=== PATIENT | female | born 1980 | race Two or more races ===

== ENCOUNTER → 2016-03-01 | Outpatient (CLI) | payer OTHER ==
--- NOTE | 2016-03-01 14:22 | US ---
Dear Dr. Quintana, Thank you for sending your patient, Agnieszka Singleton, to us for an US and consultation to assess anatomy. As you know, the patient is a 35 y.o. G1, P0 at 20 weeks and 2 days with an EDC of 5/2 10/06 based on LMP and 12 week US. Her is complicated by possible Zika exposure in the ester . Genetic Screening: Sequential Screen negative The patient denies any uterine contractions, vaginal bleeding, or loss of fluid. Today, she is withou t complaints. US FINDINGS: Number of fetuses: 1 Placental location: Fundal posterior, No previa Placental Cord Insertion: MARGINAL presentation: Variable Cervix: 3.5 cm, transabdominally MVP: 4.5 cm The adnexa were evaluated. No pathology was seen. Right ovary: Suboptimal Left ovary: Normal heart rate: 142 bpm Measurements: Biparietal diameter: 49 mm, 20 weeks 6 days Head circumference: 176 mm, 20 weeks 1 days Abdominal circumference: 151 mm, 20 weeks 3 days Femur length: 31 mm, 19 weeks 5 days Humerus length: 31 mm, 20 weeks 1 days Transcerebellar diameter: 22 mm, 20 weeks 4 days Average ultrasound age: 20 weeks 2 days Estimated weight: 327 g weight percentile: 31% ANATOMY Supratentorial brain: Normal Cerebral lateral ventricle: 6 mm Posterior fossa: Normal Cisterna magna: 4 mm Nuchal fold: 4.1 mm Lip: Normal Profile: Normal Alveolar Ridge: Suboptimal Spine: -- Cervical: Normal -- Thoracic: Normal -- Lumbar: Normal -- Sacral: Normal Heart: -- 4 Chamber: Normal -- Intraventricular septum: Appears intact by Color and Spectral US -- Right Outflow Tract: Normal -- Left Outflow Tract: Normal -- 3 Vessel View: Normal -- Aortic Arch: Normal -- Ductal Arch: Normal Diaphragm: Appears intact Stomach: Normal Abdominal Umbilical Cord Insertion: Normal Right kidney: Normal Left kidney: Normal Bladder: Normal Number of cord vessels: 3 Upper extremities: -- Right Arm: Normal -- Right Hand: Normal -- Left Arm: Normal -- Left Hand: Normal Lower extremities: -- Right Leg: Normal -- Right Foot: Normal, no club foot -- Left Leg: Normal -- Left Foot: Normal, no club foot IMPRESSION: 1. Anatomy: The fetus measures appropriate for gestational age, measuring a normal weight and percen tile. Visualization of the fetus today reveals no overt structural anomalies. There is evidence of no rmal amniotic fluid, and movement was seen during the examination. 2. Genetic Screening: This patient has had reassuring Sequential Screen results this . Today , no markers of aneuploidy were seen. While her screening and US results are reassuring, we rev iewed that aneuploidy can only be definitively excluded with diagnostic testing via amniocentes is. After this discussion, the patient does not wish to proceed with invasive testing at this time. 3. Zika Exposure: The patient had potential exposure to Zika at the time of conception and in the fir st trimester. In accordance with CDC screening guidelines, I recommend growth ultrasounds every 4-6 w eeks to assess head size and intracranial anatomy. - Growth US in 4-6 weeks 4. Marginal Cord Insertion: We discussed that this increases the risk of IUGR. - Growth US at 28-32 weeks (Patient will already be receiving regular growth US for Zika exposure) Thank you again for sending this patient to see us today. Approximately 12 minutes of a total visit t calvin of 15 minutes were spent with this patient today in direct face to face counseling regarding redd y's US findings and the above recommendations. Please feel free to contact me with any questions at . Ev Munroe MD Maternal- Medicine
--- NOTE | 2016-03-01 18:07 | US ---
Ultrasound Obstetric Detailed Evaluation Indication: The estimated gestational age by LMP is 20 weeks and 2 days yielding an EDC of July 17, 2016. Comparison: None. Findings: Number: 1 Presentation: Variable Placental location: Posterior fundal without previa Cervix: 3.5 cm MVP: 4.5 cm heart rate: 142 bpm. Left ovary 3.3 x 2.5 x 1.3 cm. Right ovary not visualized. Biometry: Biparietal diameter: 48.80 mm 20 weeks, 6 days Head circumference: 176.1 mm 20 weeks, 1 days Abdominal circumference: 150.57 mm 20 weeks, 3 days Femur length: 31.03 mm 19 weeks, 5 days Humerus length: 30.48 mm 20 weeks, 1 days Transcerebellar diameter: 21.81 mm 20 weeks, 4 days HC/AC: 1.17 FL/BPD: 64% FL/AC: 21% Average ultrasound age: 20 weeks, 2 days EDC based on today's average ultrasound age: July 17, 2016 Estimated weight is 327 gms +/- 48 gms. The estimated weight is at the 31 % based on previous dating. ANATOMY SURVEY: Supratentorial brain: Normal Posterior fossa: Normal Spine: Normal Nuchal fold: Normal Nose and lips: Suboptimal alveolar ridge. Facial profile: Normal Heart: Four chamber heart. 142 bpm. Intact intraventricular septum. Cardiac outflow tracts: Normal Stomach: Normal Umbilical cord insertion: Normal Kidneys: Normal, no pyelectasis Bladder: Normal Number of cord vessels: Three Upper extremities: Visualized Lower extremities: Visualized. Impression: 1. Living lopez in variable presentation. 2. Size concordant with dates. 3. No overt anomalies detected. 4. Please see Dr. Ev Munroe's consult and recommendations.
== END ==
LOC: FIMAGING 11:49
PROVIDERS: ATTEND Obstetrics & Gynecology
DX: O98.512 Other viral diseases complicating pregnancy, second trimester (principal); Z3A.20 20 weeks gestation of pregnancy

== ENCOUNTER → 2016-04-05 | Outpatient (CLI) | payer OTHER | LOC: FIMAGING 14:30 | PROVIDERS: ATTEND Obstetrics & Gynecology | DX: Z34.02 Encounter for supervision of normal first pregnancy, second trimester (principal); Z3A.25 25 weeks gestation of pregnancy ==

== ENCOUNTER → 2016-05-19 | Outpatient (CLI) | payer OTHER | LOC: FIMAGING 13:53 | PROVIDERS: ATTEND Obstetrics & Gynecology | DX: O09.893 Supervision of other high risk pregnancies, third trimester (principal); Z3A.31 31 weeks gestation of pregnancy ==

== ENCOUNTER → 2016-06-20 | Outpatient (CLI) | payer OTHER | LOC: FIMAGING 14:35 | PROVIDERS: ATTEND Obstetrics & Gynecology | DX: O36.5930 Maternal care for other known or suspected poor fetal growth, third trimester, not applicable or unspecified (principal); O98.513 Other viral diseases complicating pregnancy, third trimester; Z3A.36 36 weeks gestation of pregnancy ==

== ENCOUNTER 2016-06-28 17:00 | Inpatient (IN) | payer OTHER ==
[2016-06-28] MEDS ORDERED: OLIVE OIL 118 ML BTL MISC PRN (19:06)
[2016-06-28] MEDS ORDERED: OXYTOCIN/RINGERS LACTATE 1,000 ML IV PRN (19:06)
[2016-06-28] MEDS ORDERED: TERBUTALINE SULFATE 1 MG/ML VIAL IV PRN (19:06)
[2016-06-28] MEDS ORDERED: LR 1,000 ML IV PRN (19:06)
[2016-06-28] MEDS ORDERED: LR 500 ML IV PRN (19:06)
[2016-06-28] MEDS ORDERED: LIDOCAINE 1% 30 ML SDV SC PRN (19:06)
[2016-06-28] MEDS ORDERED: EPSOM SALT 454 GM TP PRN (19:06)
[2016-06-28] MEDS ORDERED: ZOLPIDEM TARTRATE 5 MG TAB PO PRN (19:07)
[2016-06-28] MEDS ORDERED: diphenhydrAMINE 25 MG CAP PO PRN (19:07)
[2016-06-28] MEDS ORDERED: CALCIUM CARBONATE 500 MG CHEWABLE TAB PO PRN (19:07)
[2016-06-28] MEDS ORDERED: ACETAMINOPHEN 650 MG/20.3 ML UDCUP PO PRN (19:15)
[2016-06-28] MEDS ORDERED: OXYTOCIN/RINGERS LACTATE 500 ML IV SCH (19:30)
[2016-06-28 22:33] LABS: % IMMATURE GRANULYOCYTES 0.7 % (0.0-1.1); ABSOLUTE IMMATURE GRANULOCYTES 0.09 10^3/uL (0.00-0.10); ADD DIFF? NO; ADD MORPH? NO; ADD SCAN? NO; ATYPICAL LYMPHOCYTE FLAG 0 (0-99); FRAGMENT RBC FLAG 0 (0-99); HEMATOCRIT 36.9 % (38.0-47.0); HEMOGLOBIN 12.8 g/dL (12.6-16.3); LEFT SHIFT FLG 10 (0-99); LIPEMIA HEMOLYSIS FLAG 90 (0-99); MEAN CELL HEMOGLOBIN CONCENTR. 34.7 g/dL (32.4-36.7); MEAN CELL VOLUME 89.3 fL (81.5-99.8); MEAN PLATELET VOLUME 10.7 fL (8.7-11.7); PLATELET CLUMPS FLAG 0 (0-99); PLATELET COUNT 193 10^3/uL (150-400); RED BLOOD CELL COUNT 4.13 10^6/uL (4.18-5.33)
[2016-06-28] MEDS ORDERED: OLIVE OIL 118 ML BTL ONE (23:26)
[2016-06-28] MEDS ORDERED: LIDOCAINE 1% 30 ML SDV ONE (23:26)
[2016-06-28] MEDS ORDERED: OXYTOCIN 10 UNIT/ML VIAL ONE (23:27)
[2016-06-28] MEDS ORDERED: MISOPROSTOL 200 MCG TAB ONE (23:27)
[2016-06-28] MEDS ORDERED: TERBUTALINE SULFATE 1 MG/ML VIAL ONE (23:27)
[2016-06-28] MEDS ORDERED: AMMONIA AROMATIC 1 EACH AMP IH ONE (23:27)
[2016-06-29] MEDS ORDERED: AMPICILLIN SODIUM 2 GM in NS 100 ML IV ONE ×3 (03:00→09:00)
[2016-06-29] MEDS ORDERED: OXYTOCIN/RINGERS LACTATE 500 ML IV SCH (04:00)
--- NOTE | 2016-06-29 08:07 | OBPROG ---
OBG Progress Note Assessment/Plan: Assessment: 36 yo @ 37 3/7, admitted for IOL for IUGR Plan: 06/29/16 08:06 FWB reassuring. GBS positive, on abx. Anticipate rupture of membranes at next check. Subjective: 36 yo @ 37 3/7, admitted for IOL for IUGR-comfortable. Objective: 06/28/16 22:20 Patient ABO/Rh O POSITIVE 06/28/16 22:20 VSS Current Contraction Pattern: Irregular FHR Pattern Variability: Moderate FHR Category: 2 ICD10 Worksheet Patient Problems: Problems Problem Status Onset IUGR (intrauterine growth restriction) Acute
[2016-06-29] MEDS ORDERED: AMPICILLIN SODIUM 1 GM in NS 100 ML IV SCH (09:00)
[2016-06-29] MEDS: AMPICILLIN SODIUM 1 GM in NS 100 ML IV SCH ×2 (13:35→18:44)
[2016-06-29] MEDS ORDERED: MISOPROSTOL 200 MCG TAB ONE (15:30)
[2016-06-29] MEDS: IBUPROFEN 600 MG TAB PO PRN ×2 (17:20→23:21)
[2016-06-29] MEDS ORDERED: HYDROCODONE/APAP 5/325 TAB PO PRN (18:40)
[2016-06-29] MEDS ORDERED: ACETAMINOPHEN 325 MG TAB PO PRN (18:40)
[2016-06-30] MEDS: IBUPROFEN 600 MG TAB PO PRN ×4 (05:10→23:07)
--- NOTE | 2016-06-30 08:33 | OBPROG ---
OBG Progress Note Assessment/Plan: Assessment: Pt is a 36 y/o PPD#1 s/p - doing well Plan: Continue routine PP care O+/RI Discharge home tomorrow 06/30/16 08:32 Subjective: Pt is ambulating, voiding, pain well controlled and breast feeding progressing, lochia diminishing. Objective: 06/30/16 05:15 Patient ABO/Rh O POSITIVE 06/28/16 22:20 Temp Pulse Resp BP Pulse Ox 36.4 C 70 18 116/72 06/29/16 20:00 06/29/16 20:00 06/29/16 20:00 06/29/16 20:00 Uterine Position/Fundal Height: Umbilicus -1 Uterine Tone: Firm ICD10 Worksheet Patient Problems: Problems Problem Status Onset IUGR (intrauterine growth restriction) Acute
[2016-06-30 09:05] VITALS: O2SAT 96
[2016-06-30] MEDS: DOCUSATE SODIUM 100 MG CAP PO PRN ×2 (09:11→20:30)
--- NOTE | 2016-06-30 09:44 | OBPROC ---
- Labor and Delivery Onset of Contractions Date: 06/29/16 Onset of Contractions Time: 08:00 Onset of Contractions Type: Induced Rupture of Membranes Date: 06/29/16 Rupture of Membranes Time: 12:00 Rupture of Membranes Type: Artificial Amniotic Fluid Color: Clear Dilation Complete Time: 15:00 Delivery Type: Spontaneous Placenta Delivery Date: 06/29/16 Episiotomy/Laceration: 2nd Degree Repair: 3-0, Vicryl EBL: 200 ml Complications: None - Medications Labor Augmentation/Induction Meds Used: Pitocin Labor Augmentation/Induction Indication: IUGR Anesthesia: Local (Specify) - [place] Info Infant A Delivery Date: 06/29/16 Delivery Time: 15:34 Sex of Infant: Male Score (1 Min): 8 Score (5 Min): 9
[2016-06-30 21:04] VITALS: RESP 18
[2016-07-01] MEDS: IBUPROFEN 600 MG TAB PO PRN ×2 (05:18→11:46)
--- NOTE | 2016-07-01 08:19 | OBGCSDC ---
General Delivery Information - General Info : 1 Para: 1 Delivery Date: 06/29/16 Delivery Physician/CNM: Yulissa Quintana Admission Date: 06/28/16 Labs: Patient ABO/Rh O POSITIVE 06/28/16 22:20 Hct 33.0 % (38.0-47.0) L 06/30/16 05:15 - [place] Info Infant A Sex of : Male Score (1 Min): 8 Score (5 Min): 9 Vaginal - Diagnosis IUP (Weeks): 37 3/7 Labor: Induced Rupture of Membranes Type: Artificial Amniotic Fluid Color: Clear Laceration: 2nd Degree Repair: 3-0, Vicryl Complications: None - Operations/Procedures Delivery Type: Spontaneous Procedures: Amniotomy Anesthesia: Epidural - Delivery EBL: 200 ml Anesthesia: Local (Specify) Discharge Information - Discharge Information Discharge Medications: Ibuprofen, Vitamins, Vicodin Complications: none Condition: Good Instruction/Follow Up: Six Weeks Discharge Physician/CNM: Puja Vargas Discharge Date: 07/01/16 Dictated: No
[2016-07-01 11:01] VITALS: BP 117/70; PULSE 70; TEMP 97.7
[2016-07-01] MEDS: DOCUSATE SODIUM 100 MG CAP PO PRN (11:46)
== END 2016-07-01 16:00 | disposition home or self-care (01) | DRG 775 ==
LOC: FLD 17:32 → FOB 06-29 17:45
PROVIDERS: ADMIT Obstetrics & Gynecology; ATTEND Obstetrics & Gynecology
PROC: 10E0XZZ Delivery of Products of Conception, External Approach (ICD-10-PCS; principal; 2016-06-29)
PROC: 10907ZC Drainage of Amniotic Fluid, Therapeutic from Products of Conception, Via Natural or Artificial Opening (ICD-10-PCS; principal; 2016-06-29)
PROC: 0KQM0ZZ Repair Perineum Muscle, Open Approach (ICD-10-PCS; principal; 2016-06-29)
PROC: 3E033VJ Introduction of Other Hormone into Peripheral Vein, Percutaneous Approach (ICD-10-PCS; principal; 2016-06-29)
DX: O36.5930 Maternal care for other known or suspected poor fetal growth, third trimester, not applicable or unspecified (principal); Z37.0 Single live birth; Z3A.37 37 weeks gestation of pregnancy; O70.1 Second degree perineal laceration during delivery; O99.824 Streptococcus B carrier state complicating childbirth
CPT/HCPCS: J0290; J2590; J3105